=== PATIENT | female | born 1990 | race Caucasian/White ===

== ENCOUNTER 2016-06-17 18:17 | Emergency (ER) | payer MEDICAID, BC ==
[2014-01-16 05:48] VITALS: BMI 33.7
[~2016-06-17 18:17] MED LIST: IBUPROFEN600 MG PO; PERCOCET 5-3251 TAB PO; PRENATAL COMPLE1 TAB PO; TUMS500 MG PO
[2016-06-17 19:32] LABS: BASOPHILS 0.1 % (0.0-2.0); EOSINOPHILS 0.5 % (0-7); HEMOGLOBIN 13.2 g/dL (12-16); IMMATURE GRANULOCYTES 0.2 % (0-5); MCH 30.1 pg (26.0-34.0); MCHC 33.8 g/dL (31.0-37.0); MCV 88.8 fL (80.0-100.0); MEAN PLATELET VOLUME 11.5 fL (7.4-10.4); MONOCYTES 11.9 % (2-11); NEUTROPHILS 61.3 % (40-80); RBC 4.39 10x6/uL (4.00-5.40); RDW 12.8 % (11.5-14.5)
[2016-06-17 19:42] LABS: APPEARANCE CLEAR (CLEAR); BILIRUBIN NEGATIVE (NEGATIVE); COLOR STRAW (YELLOW); GLUCOSE NEGATIVE (NEGATIVE); KETONE NEGATIVE (NEGATIVE); LEUKOCYTE ESTERASE NEGATIVE (NEGATIVE); NITRITE NEGATIVE (NEGATIVE); PLATELET COUNT 163 10x3/uL (130-400); PROTEIN NEGATIVE (NEGATIVE); UROBILINOGEN NORMAL (NORMAL)
== END 2016-06-17 20:32 | disposition home or self-care (01) ==
LOC: D.ER 18:17
PROVIDERS: Emergency Medicine
DX: N93.9 Abnormal uterine and vaginal bleeding, unspecified (principal)

== ENCOUNTER 2016-06-19 18:37 | Emergency (ER) | payer MEDICAID, BC ==
[2014-01-16 05:48] VITALS: BMI 33.7
[2016-06-19 19:40] LABS: BASOPHILS 0.1 % (0.0-2.0); EOSINOPHILS 0.8 % (0-7); HEMATOCRIT 42.6 % (36.0-48.0); HEMOGLOBIN 14.3 g/dL (12-16); IMMATURE GRANULOCYTES 0.1 % (0-5); LYMPHOCYTES 22.5 % (15-50); MCH 29.9 pg (26.0-34.0); MCHC 33.6 g/dL (31.0-37.0); MCV 89.1 fL (80.0-100.0); MEAN PLATELET VOLUME 11.1 fL (7.4-10.4); MONOCYTES 7.9 % (2-11); NEUTROPHILS 68.6 % (40-80); PLATELET COUNT 179 10x3/uL (130-400); RBC 4.78 10x6/uL (4.00-5.40); RDW 12.8 % (11.5-14.5); WBC 9.1 10x3/uL (4.8-10.8)
[2016-06-19 19:51] LABS: HCG SERUM POSITIVE (NEGATIVE)
== END 2016-06-19 22:27 | disposition home or self-care (01) ==
LOC: D.ER 18:37
PROVIDERS: Emergency Medicine
DX: O03.9 Complete or unspecified spontaneous abortion without complication (principal); N93.9 Abnormal uterine and vaginal bleeding, unspecified

== ENCOUNTER → 2016-07-10 10:18 | Outpatient (CLI) | payer MEDICAID ==
[2014-01-16 05:48] VITALS: BMI 33.7
== END | disposition home or self-care (01) ==
LOC: D.US 10:00
DX: O03.9 Complete or unspecified spontaneous abortion without complication (principal)